=== PATIENT | female | born 1955 ===

== ENCOUNTER 2017-02-25 07:18 | Day surgery (SDC) | payer BC ==
[2017-02-25 07:55] VITALS: TEMP 98.9
[2017-02-25 07:56] VITALS: BMI 22.1
[2017-02-25] MEDS ORDERED: Propofol 10 mg/ml Inj (20 ML) ONE (08:23)
[2017-02-25] MEDS ORDERED: Lactated Ringer's 500 ML IV ONE (08:53)
[2017-02-25 09:28] VITALS: O2SAT 98
[2017-02-25 10:19] VITALS: BP 142/77; PULSE 60; RESP 18
== END 2017-02-25 10:15 | disposition home or self-care (01) ==
LOC: C.ENDO 07:18
PROVIDERS: ATTEND Internal Medicine Gastroenterology
DX: K29.50 Unspecified chronic gastritis without bleeding (principal); K44.9 Diaphragmatic hernia without obstruction or gangrene; K76.6 Portal hypertension; K31.89 Other diseases of stomach and duodenum; R10.13 Epigastric pain
CPT/HCPCS: 43239; 88305; J2704; J3010; J7120